=== PATIENT | male | born 1965 | race Caucasian/White ===

== ENCOUNTER 2023-07-01 23:40 | Emergency (ER) | payer OTHER, SELFPAY ==
[2023-07-01 23:52] VITALS: BP 124/86
[2023-07-02] MEDS: TORADOL 30 MG IM (00:50)
[2023-07-02 00:52] VITALS: BMI 29.4
[2023-07-02 01:41] VITALS: BP 115/76
--- NOTE | 2023-07-02 02:26 | ED.MUSCINJ ---
HPI-Injury
General
Chief Complaint: Fall
Source: patient
Exam Limitations: none
Time Seen by Provider: 07/01/23 23:48
Nursing documentation reviewed up to this point in time: agreed with
Travel History
Have you had any contact with someone who has COVID-19?: No
Do you have any symptoms of coronavirus? Fever > 100 degrees, chills, cough, shortness of breath, sore throat, loss of taste or smell, muscle aches, or headache?: No
History of Present Illness-Injury
Initial Injury comments:
57-year-old male with history of discectomy lower back 15 years ago states he walked out of work at the [employer] [place] [employer], slipped on ice, he fell flat on his back injuring his right buttock. He was able to get up and walk to his bosses
house which is behind the tavern to let him know that he slipped on the ice. He then drove himself home and took 'a couple of shots,' at one point in his house 'I could not feel my right leg.' He states he could not move his right leg due to the
pain. He called EMS to bring him here.
He states he hit his head but denies headache or loss of consciousness. He denies change in vision. He denies neck pain. He denies numbness or weakness in his extremities at this time.
He points to the mid right buttock to indicate where his pain is
Past History
Past History
ED Past Medical History: None
ED Past Surgical History: Orthopedic (back surgery)
Social History
Tobacco: Smoker
Personal: Single
Living: alone
Review of Systems
Review of Systems
Allergies reviewed?: Yes
All Other Systems: ROS reviewed and negative except as documented in HPI and ROS
Constitutional: Denies fever
Respiratory: Denies trouble breathing
Cardiac: Denies chest pain
ABD/GI: Denies abdominal pain or nausea
: Denies dysuria, flank pain, incontinence, difficulty voiding or urgency
Musculoskeletal: Reports other (pain mid right buttock); Denies neck pain or back pain
Skin: Reports no symptoms
Neurological: Reports no symptoms
Phy Exam
Physical Exam
Physical Exam:
GENERAL: No acute distress. A&Ox3.
CONSTITUTIONAL: Afebrile.
EYES: PERRL, conjunctivae normal
ENMT: moist mucus membranes, Pharynx nl
RESPIRATORY: Regular respirations, nonlabored, lungs clear.
CARDIOVASCULAR: Regular rate and rhythm, no murmurs, no rubs.
GI: Soft, nontender, normal BS
MUSCULOSKELETAL: No spinal bony tenderness. No paraspinal tenderness of the neck or back. Point tender mid right buttock, no swelling or discoloration here. Pelvic rock negative. Well perfused. No edema
SKIN: Warm, dry, pink
PSYCH: Normal mood and affect. Well kept, interactive and appropriate
NEUROLOGIC: Awake, alert and oriented. No focal neurological deficits, strength equal throughout.
Injury Course
Orders/Labs/Results
Orders:
Orders
07/02/23 00:44
Ketorolac [Toradol] 30 mg IM NOW STA
07/02/23 00:45
Hip, Right 2-3 Views [CR Hip - RT w/wo Pel 2-3 Vw*] Urgent
Comment:
Reason For Exam: pain after fall right buttock
Include a pelvis x-ray?: Yes
MDM/Problems Addressed
Differential Diagnosis Includes:
Fracture pelvis, contusion
MDM/Problems Addressed:
57-year-old male with history of discectomy lower back 15 years ago states he walked out of work at the [employer] [place] [employer], slipped on ice, he fell flat on his back injuring his right buttock. He was able to get up and walk to his bosses
house which is behind the tavern to let him know that he slipped on the ice. He then drove himself home and took 'a couple of shots,' at one point in his house 'I could not feel my right leg.' He states he could not move his right leg due to the
pain. He called EMS to bring him here.
He states he hit his head but denies headache or loss of consciousness. He denies change in vision. He denies neck pain. He denies numbness or weakness in his extremities at this time.
He points to the mid right buttock to indicate where his pain is
There is no spinal bony tenderness, no indication for imaging of the spine
He is immediately point tender over mid right buttock only the hip is nontender.
X-ray of hip including pelvis initially read by this examiner, reveals no acute abnormality. There is degenerative joint disease in the hip joints.
Patient states no relief of pain after IM Toradol
Prior to receiving his discharge papers patient ambulated from room 36 down the entire hallway with a limp, he refused wheelchair, crutches or walker because he states 'there is nothing wrong.'
*Critical Care Note
Total Time (30-74mins, 75-104mins- exclusive of procedures): Not Applicable
ED Attending Note
-
Portions of this chart may have been created with voice recognition software.� Occasional wrong word or��sound alike� substitutions may have occurred due to the inherent limitations of voice recognition software.
Discharge Plan
Departure
Patient Disposition: Home (Routine Discharge)
Date of Disposition: 07/02/23
Time of Disposition: 02:25
Patient with high blood pressure during this ER visit?: No
Condition: Good
Discharge Problem:
Contusion of right buttock, Fall due to ice or snow
Instructions: Contusion (DC)
Prescriptions:
No Action
cephalexin [Keflex] 500 MG capsule
500 mg PO QID Qty: 40 0RF
hydrocodone-acetaminophen 1 TABLET tablet
1 tab PO Q4HPRN PRN (Reason: pain) Qty: 8 0RF
Referrals:
Vamshi Martins MD [Active] - As needed
UNKNOWN - PT DOES,NOT KNOW [Family Provider] -
Activity Restrictions/Additional Instructions:
As we discussed, your x-rays show nothing broken or out of place. Tylenol or ibuprofen as needed for pain. Follow-up with your orthopedic doctor if you are not a lot better in 1 week or not 100% better in 3 weeks.
Interventions
Interventions:
*Risk Screen - Suicide Last Done: 07/01/23 23:52
*General Assessment Last Done: 07/01/23 23:52
*Neglect/Abuse Screening Last Done: 07/01/23 23:52
ED- Fall Risk Assessment Last Done: 07/01/23 23:57
*ED COVID-19 Vaccine History Last Done: 07/01/23 23:52
*Nursing Disposition Last Done: 07/02/23 02:05
ED-Musculoskeletal Assessment Last Done: 07/01/23 23:57
ED- Neurological Assessment Last Done: 07/01/23 23:57
ED-Skin Assessment Last Done: 07/01/23 23:57
Discharge Date and Time
Discharge Date/Time: 07/02/23 02:06
== END 2023-07-02 02:06 | disposition home or self-care (01) ==
LOC: EMR 23:40
PROVIDERS: EMERGENCY PHYSICIAN Emergency Medicine
DX: S30.0XXA Contusion of lower back and pelvis, initial encounter (principal); W00.0XXA Fall on same level due to ice and snow, initial encounter; F17.200 Nicotine dependence, unspecified, uncomplicated
CPT/HCPCS: 99283; 96372; 73502